=== PATIENT | male | born 1950 | race Caucasian/White ===

== ENCOUNTER 2018-04-16 17:07 | Emergency (ER) | payer MEDICARE ==
[2018-04-16 19:23] VITALS: RESP 18; TEMP 98
[2018-04-16] MEDS ORDERED: MORPHINE SULFATE 4 MG/ML SYRINGE IVP STA (20:31)
[2018-04-16] MEDS ORDERED: ONDANSETRON 4 MG/2 ML VIAL IVP STA (20:31)
[2018-04-16] MEDS ORDERED: SODIUM CHLORIDE 0.9% 500 ML 500 ML IV ONE ×2 (20:31→21:37)
[2018-04-16 21:18] LABS: Basophils % (A) 0 %; Eosinophils % (A) 1 %; HGB 11.9 gm/dL (13.0-17.5); Lymphocytes # (A) 1.2 k/uL (1.0-4.8); Lymphocytes % (A) 14 %; MCH 29.1 pg (25.0-35.0); MCHC 32.1 g/dL (31.0-37.0); MCV 90.8 fL (80.0-100.0); Mean Platelet Volume 9.5; Monocytes # (A) 0.5 k/uL (0-1.0); Monocytes % (A) 5 %; Neutrophils # (A) 7.1 k/uL (1.3-7.7); Neutrophils % (A) 79 %; Platelet Count 190 k/uL (150-450); RBC 4.08 m/uL (4.30-5.90); RDW 14.2 % (11.5-15.5)
[2018-04-16 21:27] LABS: Partial Thromboplastin Time 22.7 sec (22.0-30.0); Prothrombin Time 9.7 sec (9.0-12.0)
[2018-04-16 21:28] LABS: Albumin 4.1 g/dL (3.5-5.0); Calcium 9.4 mg/dL (8.4-10.2); Total Bilirubin 0.5 mg/dL (0.2-1.3)
[2018-04-16 22:10] VITALS: BP 121/72; PULSE 71
--- NOTE | 2018-04-16 22:21 | ED ---
Fall HPI - General Chief Complaint: Fall Stated Complaint: fall Time Seen by Provider: 04/16/18 20:06 Source: EMS Mode of arrival: EMS - History of Present Illness Initial Comments: 67-year-old male patient presents to the emergency department today for evaluation of left flank pain after expressing a fall from a ladder. Patient is approximate 1 foot up on the ladder when he slipped and fell backwards landing on a large rock. Patient states that he had sudden onset of pain to the area. Patient states is very difficult for him to get up. Patient states that the pain worsens and ever he takes a deep breath or changes position. Patient denies any cough or hemoptysis. States he has not yet urinated therefore doesn't know if he has had any hematuria. He denies hitting his head or losing consciousness during the fall. Denies any neck or back pain. Patient denies any headache, chest pain, dizziness, weakness, abdominal pain, nausea, vomiting, or difficulties with bowel movements or urination. - Related Data Home Medications Medication Instructions Recorded Confirmed Aspirin EC [Ecotrin Low Dose] 81 mg PO Q48H 04/16/18 04/16/18 Doxazosin Mesylate [Cardura] 4 mg PO DAILY 04/16/18 04/16/18 Ferrous Sulfate [Feosol] 325 mg PO DAILY 04/16/18 04/16/18 Gabapentin [Neurontin] 400 mg PO TID 04/16/18 04/16/18 Insulin Glargine,Hum.rec.anlog 45 unit SQ DAILY 04/16/18 04/16/18 [Lantus Solostar] Levothyroxine Sodium [Synthroid] 50 mcg PO DAILY 04/16/18 04/16/18 Lisinopril-Hctz 10-12.5 mg 1 tab PO DAILY 04/16/18 04/16/18 [Zestoretic 10-12.5] Omeprazole 20 mg PO DAILY 04/16/18 04/16/18 Simvastatin [Zocor] 10 mg PO HS 04/16/18 04/16/18 glipiZIDE [Glucotrol] 20 mg PO BID 04/16/18 04/16/18 traMADol HCL [Ultram] 100 mg PO QID PRN 04/16/18 04/16/18 Previous Rx's Medication Instructions Recorded Hydrocodone/Acetaminophen [Carpenter 1 tab PO Q4H PRN #18 tab 04/16/18 5-325] Allergies Allergy/AdvReac Type Severity Reaction Status Date / Time No Known Allergies Allergy Verified 04/16/18 19:58 Review of Systems ROS Statement: Those systems with pertinent positive or pertinent negative responses have been documented in the HPI. ROS Other: All systems not noted in ROS Statement are negative. Past Medical History Past Medical History: Diabetes Mellitus, GERD/Reflux, Hyperlipidemia, Hypertension, Thyroid Disorder Additional Past Medical History / Comment(s): neuropathy, History of Any Multi-Drug Resistant Organisms: None Reported Past Surgical History: No Surgical Hx Reported Past Psychological History: No Psychological Hx Reported Smoking Status: Former smoker Past Alcohol Use History: None Reported Past Drug Use History: None Reported General Exam Limitations: physical limitation General appearance: alert, in no apparent distress, other (This is a well- developed, well-nourished adult male patient in mild distress related to pain. Vital signs upon presentation are temperature 98.0F, pulse 89, respirations 18 , blood pressure 113/71, pulse ox 94% on room air.) ENT exam: Present: normal exam, normal oropharynx, mucous membranes moist Respiratory exam: Present: normal lung sounds bilaterally. Absent: respiratory distress, wheezes, rales, rhonchi, stridor Cardiovascular Exam: Present: regular rate, normal rhythm, normal heart sounds. Absent: systolic murmur, diastolic murmur, rubs, gallop, clicks GI/Abdominal exam: Present: soft, tenderness (Patient having left mid abdomen tenderness), normal bowel sounds. Absent: distended, guarding, rebound, rigid Extremities exam: Present: normal inspection, full ROM, normal capillary refill. Absent: tenderness, pedal edema, joint swelling, calf tenderness Back exam: Present: normal inspection, CVA tenderness (L), other (Patient is swelling and tenderness over the left flank and CVA area.). Absent: CVA tenderness (R), vertebral tenderness Neurological exam: Present: alert, oriented X3, CN II-XII intact Psychiatric exam: Present: normal affect, normal mood Skin exam: Present: warm, dry, intact, normal color. Absent: rash Course Vital Signs 04/16/18 04/16/18 19:15 22:09 Temperature 98.0 F Pulse Rate 89 71 Respiratory 18 18 Rate Blood Pressure 113/71 121/72 O2 Sat by Pulse 94 L 96 Oximetry Medical Decision Making - Medical Decision Making 67-year-old male patient presents to the emergency department today for evaluation of left flank pain after drinking a fall. Physical examination did reveal tenderness over the left posterior ribs and left flank. Patient had no spinal tenderness. Labs reviewed and did reveal elevation BUN and creatinine. However given risk for traumatic injury patient did have CT abdomen and pelvis with contrast. There is no abnormalities identified on this imaging. Patient did have x-ray of the chest and the ribs, there was evidence of fractures of the eighth, ninth, and 10th ribs on the left side. Did discuss findings and results with the patient. We did discuss pain management. He did have an sinus from a [employer]. He'll be discharged home with Carpenter for pain control. We discussed importance of coughing and deep breathing exercises. He is instructed to follow-up with his primary care physician for recheck in 1-2 days. Return parameters discussed in detail. He verbalizes understanding and agrees with this plan. - Lab Data Result diagrams: 04/16/18 21:00 04/16/18 21:00 Lab Results 04/16/18 04/16/18 04/16/18 Range/Units 21:00 21:00 21:00 WBC 9.0 (3.8-10.6) k/uL RBC 4.08 L (4.30-5.90) m/uL Hgb 11.9 L (13.0-17.5) gm/dL Hct 37.0 L (39.0-53.0) % MCV 90.8 (80.0-100.0) fL MCH 29.1 (25.0-35.0) pg MCHC 32.1 (31.0-37.0) g/dL RDW 14.2 (11.5-15.5) % Plt Count 190 (150-450) k/uL Neutrophils % 79 % Lymphocytes % 14 % Monocytes % 5 % Eosinophils % 1 % Basophils % 0 % Neutrophils # 7.1 (1.3-7.7) k/uL Lymphocytes # 1.2 (1.0-4.8) k/uL Monocytes # 0.5 (0-1.0) k/uL Eosinophils # 0.0 (0-0.7) k/uL Basophils # 0.0 (0-0.2) k/uL PT 9.7 (9.0-12.0) sec INR 1.0 (<1.2) APTT 22.7 (22.0-30.0) sec Sodium 139 (137-145) mmol/L Potassium 5.0 (3.5-5.1) mmol/L Chloride 107 (98-107) mmol/L Carbon Dioxide 21 L (22-30) mmol/L Anion Gap 11 mmol/L BUN 35 H (9-20) mg/dL Creatinine 1.66 H (0.66-1.25) mg/dL Est GFR (CKD-EPI)AfAm 48 (>60 ml/min/1.73 sqM) Est GFR (CKD-EPI)NonAf 42 (>60 ml/min/1.73 sqM) Glucose 184 H (74-99) mg/dL Calcium 9.4 (8.4-10.2) mg/dL Total Bilirubin 0.5 (0.2-1.3) mg/dL AST 28 (17-59) U/L ALT 33 (21-72) U/L Alkaline Phosphatase 96 (38-126) U/L Total Protein 7.0 (6.3-8.2) g/dL Albumin 4.1 (3.5-5.0) g/dL - Radiology Data Radiology results: report reviewed, image reviewed Two-view x-ray of the chest is obtained. Report was reviewed in its entirety. Impression by Dr. Medina shows atelectasis at the lung bases name and the left side. No pneumothorax. 4 views of the left ribs were obtained. Report was reviewed in its entirety. Impression by Dr. Medina shows multiple nondisplaced rib fractures specifically over ribs 8, 9, and 10. Subsegmental atelectasis. 3 views of the left shoulder obtained. Report was reviewed in its entirety. Impression by Dr. Medina shows negative left shoulder exam CT abdomen and pelvis with contrast was obtained. Report was reviewed in its entirety portion by Dr. Asya Fleimng shows no acute process. Disposition Clinical Impression: Multiple fractures of ribs, left side, initial encounter for closed fracture Disposition: HOME SELF-CARE Condition: Good Instructions: How to Use an Incentive Spirometer (ED), Rib Fracture (ED) Additional Instructions: Apply ice to the painful areas. Use incentive spirometer as directed, 10 times an hour while awake. Take pain medication as directed. Follow up with her primary care physician for recheck in 1-2 days. Return immediately for any new , worsening, or concerning symptoms. Prescriptions: Hydrocodone/Acetaminophen [Carpenter 5-325] 1 tab PO Q4H PRN #18 tab PRN Reason: Pain Is patient prescribed a controlled substance at d/c from ED?: Yes When asked, does pt state using other controlled substances?: No If prescribed controlled substance>3 days was MAPS reviewed?: Prescribed <3 Days If opioid is for acute pain is fill amount 7 days or less?: Yes If Rx opioid, was Start Talking consent form obtained?: Yes Referrals: [facility],Clinic [Primary Care Provider] - 1-2 days Time of Disposition: 22:47
--- NOTE | 2018-04-16 22:23 | CT ---
EXAMINATION TYPE: CT abdomen pelvis w con DATE OF EXAM: 04/16/2018 COMPARISON: None HISTORY: patient fall. LT side pain thoracolumbar CT DLP: 990 mGycm Automated exposure control for dose reduction was used. TECHNIQUE: Helical acquisition of images was performed from the lung bases through the pelvis. CONTRAST: Performed without Oral Contrast and with IV Contrast, patient injected with 80 mL of Isovue 300. FINDINGS: LUNG BASES: No significant abnormality is appreciated. LIVER/GB: No significant abnormality is appreciated. PANCREAS: No significant abnormality is seen. SPLEEN: No significant abnormality is seen. ADRENALS: No significant abnormality is seen. KIDNEYS: No significant abnormality is seen. FREE AIR: No free air is visualized. RETROPERITONEAL ADENOPATHY: None visualized REPRODUCTIVE ORGANS: No significant abnormality is seen URINARY BLADDER: No significant abnormality is seen. PELVIC ADENOPATHY: None visualized. OSSEOUS STRUCTURES: No significant abnormality is seen. BOWEL: No significant abnormality is seen. VASCULATURE: Unremarkable. IMPRESSION: NO ACUTE PROCESS.
--- NOTE | 2018-04-16 22:29 | XR ---
EXAMINATION TYPE: XR shoulder complete LT DATE OF EXAM: 04/16/2018 COMPARISON: NONE HISTORY: Shoulder pain TECHNIQUE: 3 views FINDINGS: I see no fracture nor dislocation. Joint spaces are normal. There are no pathologic calcifi cations. IMPRESSION: Negative left shoulder exam.
--- NOTE | 2018-04-16 22:31 | XR ---
EXAMINATION TYPE: XR ribs LT DATE OF EXAM: 04/16/2018 COMPARISON: NONE HISTORY: Pain TECHNIQUE: 4 views FINDINGS: There are nondisplaced fractures of the left posterior 10th ninth eighth ribs. Costophrenic angle is clear. Left lung is clear of consolidation. There is subsegmental atelectasis at the left l sukhi base. I see no pneumothorax. IMPRESSION: Multiple nondisplaced rib fractures. Subsegmental atelectasis.
--- NOTE | 2018-04-16 22:33 | XR ---
EXAMINATION TYPE: XR chest 2V DATE OF EXAM: 04/16/2018 COMPARISON: NONE HISTORY: Fall. Chest pain TECHNIQUE: Frontal and lateral views of the chest are obtained. FINDINGS: There is patchy atelectasis at the lung bases. There is poor inspiration. There is no pneu mothorax. Heart size is normal. Mediastinum is normal. IMPRESSION: Atelectasis at the lung bases mainly on the left side. No pneumothorax.
[2018-04-16] MEDS ORDERED: ACET/COD 300 MG/30 MG STARTER PACK 6 TAB BTL PO STA (22:46)
[2018-04-16] MEDS ORDERED: HYDROmorphone 1 MG/ML 1 ML SYRINGE IVP STA (22:57)
== END 2018-04-16 23:15 | disposition home or self-care (01) ==
LOC: EC 17:07
DX: S22.42XA Multiple fractures of ribs, left side, initial encounter for closed fracture (principal); J98.11 Atelectasis; R79.89 Other specified abnormal findings of blood chemistry; R10.9 Unspecified abdominal pain; E78.5 Hyperlipidemia, unspecified; I10 Essential (primary) hypertension; E11.40 Type 2 diabetes mellitus with diabetic neuropathy, unspecified; K21.9 Gastro-esophageal reflux disease without esophagitis; E07.9 Disorder of thyroid, unspecified; Z87.891 Personal history of nicotine dependence; Z79.4 Long term (current) use of insulin; Z79.82 Long term (current) use of aspirin; Z79.899 Other long term (current) drug therapy; W11.XXXA Fall on and from ladder, initial encounter
CPT/HCPCS: 36415; 80053; 85025; 85610; 85730; 73030; 71100; 71046; 74177; 99284; 96374; 96375 ×2; 96361; J2270; J2405; J1170; Q9967

== ENCOUNTER 2019-07-21 08:15 | Day surgery (SDC) | payer MEDICARE, OTHER ==
[2019-07-16 10:53] VITALS: BMI 29.2
[~2019-07-21 08:15] MED LIST: LACTATED RINGERS 1,000 ML IV SCH; LIDOCAINE 1% (10MG/ML) FOR IV START INTRADERMA PRN
[2019-07-21] MEDS ORDERED: LACTATED RINGERS 1,000 ML IV ONE (08:32)
[2019-07-21 08:33] VITALS: TEMP 97.8
[2019-07-21 08:39] LABS: Glucose,Whole Blood 187 mg/dL (75-99)
[2019-07-21] MEDS ORDERED: PROPOFOL 10 MG/ML 20 ML VIAL IV ONE (08:52)
--- NOTE | 2019-07-21 09:22 | P.PCN ---
Date of Procedure: 07/21/19 Description of Procedure: BRIEF HISTORY: Patient is a 68-year-old male with a personal history of colon polyps presenting for outpatient colonoscopy. He denies any change in bowel habits, blood per rectum or abdominal pain. No family history of colon cancer. Last colonoscopy 6 years ago per his recollection. PROCEDURE PERFORMED: Colonoscopy with polypectomy. PREOPERATIVE DIAGNOSIS: Personal history of colon polyps, last colonoscopy 6 years ago. ESTIMATED BLOOD LOSS: Minimal. IV sedation per Anesthesia. PROCEDURE: After informed consent was obtained, the patient, was brought into the endoscopy unit. IV sedation was administered by Anesthesia under continuous monitoring. Digital rectal examination was normal. Initially the Olympus CF-190 flexible video colonoscope was then inserted in the rectum, gradually advanced into the cecum without any difficulty. Careful examination was performed as the scope was gradually being withdrawn. Ileocecal valve and the appendiceal orifice were visualized and appeared normal. Prep was excellent. Mucosa of the cecum, ascen ding colon, transverse colon, descending colon, sigmoid colon, and rectum appeared normal. A flat 12 mm ascending colon polyp was removed with cold snare polypectomy. A sessile 5 mm descending colon polyp was removed with cold snare polypectomy. A few scattered diverticula noted in the sigmoid colon. Retroflexion was performed in the rectum and no lesions were seen. The patient tolerated the procedure well. IMPRESSION A flat ascending colon polyp removed with cold snare polypectomy. Small descending colon polyp removed with cold snare polypectomy. Mild sigmoid diverticulosis. RECOMMENDATIONS: Findings of this examination were discussed with the patient and his . Okay to resume diet. Okay to resume medications. Await pathology from polypectomies. Would recommend repeat colonoscopy in 3 years for high risk colon polyp pending pathology from polypectomies.
[2019-07-21 09:24] VITALS: RESP 16
[2019-07-21 09:36] VITALS: BP 121/67; PULSE 87
== END 2019-07-21 10:08 | disposition home or self-care (01) ==
LOC: ORWHC2ENDO 08:15
PROVIDERS: ATTEND Internal Medicine
DX: Z12.11 Encounter for screening for malignant neoplasm of colon (principal); D12.2 Benign neoplasm of ascending colon; D12.4 Benign neoplasm of descending colon; K57.30 Diverticulosis of large intestine without perforation or abscess without bleeding; Z86.010 Personal history of colon polyps; E11.9 Type 2 diabetes mellitus without complications; E07.9 Disorder of thyroid, unspecified; Z79.82 Long term (current) use of aspirin; Z79.84 Long term (current) use of oral hypoglycemic drugs; Z79.890 Hormone replacement therapy; Z79.899 Other long term (current) drug therapy; Z87.891 Personal history of nicotine dependence; Z98.41 Cataract extraction status, right eye; Z98.42 Cataract extraction status, left eye; Z98.890 Other specified postprocedural states
CPT/HCPCS: 88305; 45385; J2704

== ENCOUNTER 2022-09-20 07:27 | Day surgery (SDC) | payer OTHER ==
[2022-09-18 11:35] VITALS: BMI 30.7
[~2022-09-20 07:27] MED LIST changes: -LIDOCAINE 1% (10MG/ML) FOR IV START INTRADERMA PRN
[2022-09-20 07:51] VITALS: RESP 16; TEMP 97.6
[2022-09-20 08:02] LABS: Glucose,Whole Blood 139 mg/dL (70-110)
[2022-09-20] MEDS ORDERED: LIDOCAINE 2% INJ 20 MG/ML (2 ML VIAL) ONE (08:17)
[2022-09-20] MEDS ORDERED: PROPOFOL 10 MG/ML 20 ML VIAL IV ONE (08:17)
--- NOTE | 2022-09-20 08:43 | P.PCN ---
Date of Procedure: 09/20/22 Procedure(s) Performed: BRIEF HISTORY: Patient is a 71-year-old pleasant white male scheduled for an elective colonoscopy as a part of evaluation of prior history of colon polyps. PROCEDURE PERFORMED: Colonoscopy with snare polypectomy. PREOPERATIVE DIAGNOSIS: History of colon polyps. IV sedation per Anesthesia. PROCEDURE: After informed consent was obtained, the patient, was brought into the endoscopy unit. IV sedation was administered by Anesthesia under continuous monitoring. Digital rectal examination was normal. Initially the Olympus CF-160 flexible video colonoscope was then inserted in the rectum, gradually advanced into the cecum without any difficulty. Careful examination was performed as the scope was gradually being withdrawn. Ileocecal valve and the appendiceal orifice were visualized and appeared normal. Prep was excellent. Mucosa of the cecum, appeared normal. Descending colon there was a 3 cm lipoma identified. Rest of the ascending colon, transverse colon, descending colon, appeared normal. In the distal sigmoid colon at 20 cm from anal was there was a 1 cm pedunculated polyp removed by snare polypectomy. Scattered left sided diverticulosis seen. ~ sigmoid colon, and rectum appeared normal. Retroflexion was performed in the rectum and no lesions were seen. The patient tolerated the procedure well. IMPRESSION: 1 cm sigmoid colon polyp status post polypectomy Scattered sigmoid diverticulosis RECOMMENDATIONS: Findings of this examination were discussed with the patient as well as a family. He was advised to follow with the biopsy results. If the biopsy reveals adenoma repeat colonoscopy in 3 years..
[2022-09-20 09:11] VITALS: BP 127/77; PULSE 75
== END 2022-09-20 09:15 | disposition home or self-care (01) ==
LOC: ORWHC2ENDO 07:27
PROVIDERS: ATTEND Internal Medicine Gastroenterology
DX: Z12.11 Encounter for screening for malignant neoplasm of colon (principal); K63.5 Polyp of colon; K57.30 Diverticulosis of large intestine without perforation or abscess without bleeding; I10 Essential (primary) hypertension; E78.5 Hyperlipidemia, unspecified; G47.33 Obstructive sleep apnea (adult) (pediatric); F12.90 Cannabis use, unspecified, uncomplicated; E11.9 Type 2 diabetes mellitus without complications; M19.90 Unspecified osteoarthritis, unspecified site; K21.9 Gastro-esophageal reflux disease without esophagitis; E03.9 Hypothyroidism, unspecified; Z99.89 Dependence on other enabling machines and devices; Z79.4 Long term (current) use of insulin; Z86.010 Personal history of colon polyps; Z79.82 Long term (current) use of aspirin; Z79.899 Other long term (current) drug therapy; Z79.890 Hormone replacement therapy
CPT/HCPCS: 88305; 45385; J2704; J2001

== ENCOUNTER → 2023-09-10 | Outpatient (CLI) | payer OTHER | END | disposition home or self-care (01) | LOC: LABPAT 14:49 | PROVIDERS: ATTEND Orthopaedic Surgery | DX: Z01.818 Encounter for other preprocedural examination (principal); M17.11 Unilateral primary osteoarthritis, right knee; Z22.322 Carrier or suspected carrier of Methicillin resistant Staphylococcus aureus | CPT/HCPCS: 87070 ==

== ENCOUNTER → 2024-11-26 | Outpatient (CLI) | payer OTHER | END | disposition home or self-care (01) | LOC: LABPAT 10:43 | PROVIDERS: ATTEND Orthopaedic Surgery | DX: Z01.812 Encounter for preprocedural laboratory examination (principal); Z22.322 Carrier or suspected carrier of Methicillin resistant Staphylococcus aureus; M17.11 Unilateral primary osteoarthritis, right knee | CPT/HCPCS: 87070 ==